=== PATIENT | female | born 1980 | race Caucasian/White ===

== ENCOUNTER 2018-09-10 14:59 | Inpatient (IN) | payer BC ==
[2018-09-10 15:43] VITALS: BMI 20.1
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
[2018-09-10] MEDS ORDERED: P-EPHED 60MG/TRIPROLIDI 2.5MG TABLET PO PRN (16:43)
[2018-09-10] MEDS ORDERED: MENTHOL/PHENOL 1 EACH UD MM PRN (16:43)
[2018-09-10] MEDS ORDERED: MAGNESIUM HYDROX 2400MG/30ML ORAL SUSPENSION 30 ML CUP PO PRN (16:43)
[2018-09-10] MEDS ORDERED: IBUPROFEN 400 MG TABLET (FP) PO PRN (16:43)
[2018-09-10] MEDS ORDERED: MAGNESIUM CITRATE 300 ML BOTTLE PO PRN (16:43)
[2018-09-10] MEDS ORDERED: ACETAMINOPHEN 325 MG TABLET (FP) PO PRN (16:43)
[2018-09-10] MEDS ORDERED: guaiFENesin/D-METHORPHAN HB 10 ML UNIT-DOSE CUPS PO PRN (16:43)
[2018-09-10] MEDS ORDERED: MAG HYDROX/AL HYDROX/SIMETH 30 ML UNIT-DOSE CUP PO PRN (16:43)
[2018-09-10] MEDS: diazePAM 5 MG TABLET PO PRN (19:56)
[2018-09-10] MEDS: NICOTINE POLACRILEX 2 MG GUM BC PRN (19:58)
[2018-09-10] MEDS ORDERED: MELATONIN 5 MG TABLETS PO PRN (22:00)
[2018-09-10] MEDS: THIAMINE HCL 100 MG TABLET (FP) PO SCH (22:27)
[2018-09-10] MEDS: diazePAM 5 MG TABLET PO SCH (22:28)
[2018-09-11] MEDS: diazePAM 5 MG TABLET PO SCH ×4 (05:39→22:29)
[2018-09-11] MEDS: NICOTINE POLACRILEX 2 MG GUM BC PRN ×3 (06:14→22:29)
[2018-09-11] MEDS: PRENATAL VITAMINS W/ FOLIC ACID TABLET (FP) PO SCH (10:22)
[2018-09-11 10:27] LABS: HEMATOCRIT 42.5 % (32.4-45.2); HEMOGLOBIN 14.3 GM/dL (10.7-15.3); MCH 34.6 pg (25.7-33.7); MCHC 33.8 g/dl (32.0-36.0); MEAN CELL VOLUME 102.4 fl (80-96); MEAN PLT VOLUME 7.8 fl (7.5-11.1); PLATELET COUNT 293 K/MM3 (134-434); RBC 4.15 M/mm3 (3.60-5.2); RDW 12.8 % (11.6-15.6); WHITE BLOOD COUNT 8.7 K/mm3 (4.0-10.0)
[2018-09-11 10:33] LABS: ALBUMIN 3.8 g/dl (3.4-5.0); ALK PHOS 65 U/L (45-117); ANION GAP 12 MMOL/L (8-16); BILIRUBIN,TOTAL 0.6 mg/dL (0.2-1); BLOOD UREA NITROGEN 7 mg/dL (7-18); CHLORIDE 102 mmol/L (98-107); CO2 25 mmol/L (21-32); CREATININE 0.8 mg/dL (0.55-1.3); GLUCOSE,RANDOM 119 mg/dL (74-106); SGOT/AST 20 U/L (15-37); SGPT/ALT 28 U/L (13-61); SODIUM 139 mmol/L (136-145); TOT PROT 7.2 g/dl (6.4-8.2)
[2018-09-11] MEDS: diazePAM 5 MG TABLET PO PRN ×2 (11:53→17:36)
--- NOTE | 2018-09-11 13:56 | PN ---
S CIWA - CIWA Score Nausea/Vomitin-Mild Nausea/No Vomiting Muscle Tremors: 3 Anxiety: 1-Mildly Anxious Agitation: 2 Paroxysmal Sweats: 1-Minimal Palms Moist Orientation: 1-Uncertain about Date Tacttile Disturbances: 0-None Auditory Disturbances: 0-None Visual Disturbances: 0-None Headache: 2-Mild CIWA-Ar Total Score: 11 S Progress Note (SOAP) Subjective: tremor sweat irritable restlessness Objective: 09/11/18 13:55 Vital Signs Temperature 98.4 F 09/11/18 09:36 Pulse Rate 70 09/11/18 09:36 Respiratory Rate 18 09/11/18 09:36 Blood Pressure 108/70 09/11/18 09:36 O2 Sat by Pulse Oximetry (%) Laboratory Last Values WBC 8.7 K/mm3 (4.0-10.0) 09/11/18 07:00 RBC 4.15 M/mm3 (3.60-5.2) 09/11/18 07:00 Hgb 14.3 GM/dL (10.7-15.3) 09/11/18 07:00 Hct 42.5 % (32.4-45.2) 09/11/18 07:00 MCV 102.4 fl (80-96) H 09/11/18 07:00 MCH 34.6 pg (25.7-33.7) H 09/11/18 07:00 MCHC 33.8 g/dl (32.0-36.0) 09/11/18 07:00 RDW 12.8 % (11.6-15.6) 09/11/18 07:00 Plt Count 293 K/MM3 (134-434) 09/11/18 07:00 MPV 7.8 fl (7.5-11.1) 09/11/18 07:00 Sodium 139 mmol/L (136-145) 09/11/18 07:00 Potassium 4.0 mmol/L (3.5-5.1) 09/11/18 07:00 Chloride 102 mmol/L (98-107) 09/11/18 07:00 Carbon Dioxide 25 mmol/L (21-32) 09/11/18 07:00 Anion Gap 12 MMOL/L (8-16) 09/11/18 07:00 BUN 7 mg/dL (7-18) 09/11/18 07:00 Creatinine 0.8 mg/dL (0.55-1.3) 09/11/18 07:00 Creat Clearance w eGFR > 60 (>60) 09/11/18 07:00 Random Glucose 119 mg/dL (74-106) H 09/11/18 07:00 Calcium 9.0 mg/dL (8.5-10.1) 09/11/18 07:00 Total Bilirubin 0.6 mg/dL (0.2-1) 09/11/18 07:00 AST 20 U/L (15-37) 09/11/18 07:00 ALT 28 U/L (13-61) 09/11/18 07:00 Alkaline Phosphatase 65 U/L (45-117) 09/11/18 07:00 Total Protein 7.2 g/dl (6.4-8.2) 09/11/18 07:00 Albumin 3.8 g/dl (3.4-5.0) 09/11/18 07:00 RPR Titer Nonreactive (NONREACTIVE) 09/11/18 07:00 lab noted Assessment: 09/11/18 13:56 withdrawal sx Plan: continue detox
[2018-09-11] MEDS: NICOTINE 14 MG/24 HOURS TOPICAL PATCH TD SCH (15:07)
[2018-09-11] MEDS: THIAMINE HCL 100 MG TABLET (FP) PO SCH (22:29)
[2018-09-12] MEDS: diazePAM 5 MG TABLET PO PRN (05:59)
[2018-09-12 06:29] VITALS: TEMP 97
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
[2018-09-12 09:18] VITALS: BP 123/79; PULSE 80
[2018-09-12] MEDS: NICOTINE 14 MG/24 HOURS TOPICAL PATCH TD SCH (09:35)
[2018-09-12] MEDS: PRENATAL VITAMINS W/ FOLIC ACID TABLET (FP) PO SCH (09:52)
[2018-09-12] MEDS ORDERED: diazePAM 5 MG TABLET PO SCH (10:00)
== END 2018-09-12 09:30 | disposition home or self-care (01) | DRG 897 ==
LOC: YASAS 14:59 → Y3N 18:47
PROVIDERS: ADMIT Neuromusculoskeletal Medicine & OMM; ATTEND Neuromusculoskeletal Medicine & OMM
PROC: HZ2ZZZZ Detoxification Services for Substance Abuse Treatment (ICD-10-PCS; principal; 2018-09-10)
DX: F10.230 Alcohol dependence with withdrawal, uncomplicated (principal); F17.213 Nicotine dependence, cigarettes, with withdrawal; F43.10 Post-traumatic stress disorder, unspecified; F41.9 Anxiety disorder, unspecified
CPT/HCPCS: 36415; 80053; 85027; 86593